=== PATIENT | male | born 1955 | race Caucasian/White ===

== ENCOUNTER → 2020-12-03 | Outpatient (CLI) | payer MEDICARE, OTHER | LOC: EXRD 12-02 11:15 | DX: I70.202 Unspecified atherosclerosis of native arteries of extremities, left leg (principal); M79.662 Pain in left lower leg; R93.1 Abnormal findings on diagnostic imaging of heart and coronary circulation | CPT/HCPCS: 93922; 93925 ==

== ENCOUNTER → 2022-07-21 | Outpatient (CLI) | payer MEDICARE, OTHER | LOC: KOH-I 07-14 16:30 | DX: F17.210 Nicotine dependence, cigarettes, uncomplicated (principal) | CPT/HCPCS: 71271 ==

== ENCOUNTER 2022-08-09 02:11 | Emergency (ER) | payer MEDICARE, OTHER | END 2022-08-09 04:45 | disposition left against medical advice (07) | LOC: ER1 02:11 | DX: Z53.21 Procedure and treatment not carried out due to patient leaving prior to being seen by health care provider (principal) ==